=== PATIENT | male | born 1960 | race African-American/Black ===

== ENCOUNTER 2018-03-03 10:36 | Inpatient (IN) | payer OTHER ==
[2018-03-03 13:38] VITALS: BMI 29.0
--- NOTE | 2018-03-03 14:27 | HP ---
Admission [facility] Chief Complaint: requesting rehab fromal alcohol and cocaine after recent relapse Allergies/Adverse Reactions: Allergies Allergy/AdvReac Type Severity Reaction Status Date / Time lactose Allergy Verified 03/03/18 13:43 History of Present Illness: 57 yo m was sobeer manyyears when he realpased to alcohol and cocaine use, completed inpatiet detoax and now requesting rehab. no suicidal ideation, no h /o sieures, DTs. Exam Limitations: No Limitations - Ebola screening Have you traveled outside of the country in the last 21 days: No Have you had contact with anyone from an Ebola affected area: No Have you been sick,other than usual withdrawal symptoms: No Do you have a fever: No - Review of Systems Constitutional: No Symptoms Reported EENT: reports: No Symptoms Reported Respiratory: reports: No Symptoms reported Cardiac: reports: No Symptoms Reported GI: reports: No Symptoms Reported : reports: No Symptoms Reported Musculoskeletal: reports: No Symptoms Reported Integumentary: reports: No Symptoms Reported Neuro: reports: No Symptoms reported Endocrine: reports: No Symptoms Reported, Unexplained Weight Loss Psychiatric: reports: Judgement Intact, Mood/Affect Appropiate, Orientated x3, Anxious, Depressed Other Systems: Reviewed and Negative Patient History - Patient Medical History Hx Anemia: No Hx Asthma: No Hx Chronic Obstructive Pulmonary Disease (COPD): No Hx Cancer: Yes (s/p radiation implants for prostate ca) Hx Cardiac Disorders: No Hx Congestive Heart Failure: No Hx Hypertension: No Hx Hypercholesterolemia: No Hx Pacemaker: No HX Cerebrovascular Accident: No Hx Seizures: No Hx Dementia: No Hx Diabetes: No Hx Gastrointestinal Disorders: No Hx Liver Disease: No Hx Genitourinary Disorders: No Hx Sexually Transmitted Disorders: No Hx Renal Disease (ESRD): No Hx Thyroid Disease: No Hx Human Immunodeficiency Virus (HIV): No Hx Hepatitis C: No Hx Depression: Yes Hx Suicide Attempt: Yes (no si at present, last attempt 52) Hx Bipolar Disorder: Yes Hx Schizophrenia: Yes (schizoaffective do onmeds) - Patient Surgical History Past Surgical History: Yes Hx Genitourinary Surgery: Yes (prstate radaition implants) Hx Orthopedic Surgery: Yes (s/p rotator cuff surgery) Other Surgical History: bunions removal Anesthesia Reaction: No - PPD History Previous Implant?: Yes Documented Results: Negative w/o proof Implanted On Prior R Admission?: No PPD to be Administered?: Yes - Reproductive History Patient is a Female of Child Bearing Age (11 -55 yrs old): No Patient : No - Smoking Cessation Smoking history: Current every day smoker Have you smoked in the past 12 months: Yes Aproximately how many cigarettes per day: 10 Hx Chewing Tobacco Use: No Initiated information on smoking cessation: Yes 'Breaking Loose' booklet given: 03/03/18 - Substance & Tx. History Hx Alcohol Use: Yes Hx Substance Use: Yes Substance Use Type: Alcohol, Cocaine Hx Substance Use Treatment: Yes (detox [facility]) - Substances Abused Alcohol Route: Oral Frequency: Daily Amount used: 1 pint rum/ 2 6pks Age of first use: 17 Date of Last Use: 02/26/18 Cocaine Route: Inhalation Frequency: Daily Amount used: $10 Age of first use: 9 Date of Last Use: 02/26/18 Family Disease History - Family Disease History Family History: Denies Family Disease History: Heart Disease: Mother (kidney failure, depression), Brother (htnm, kidney failure), Sister (htn, kidney failure), Other: Mother, Brother, Sister Admission Physical Exam [facility] - Vital Signs Vital Signs: Vital Signs - 24 hr 03/03/18 13:36 Temperature 96.5 F L Pulse Rate 70 Respiratory 18 Rate Blood Pressure 151/91 - Physical General Appearance: Yes: Within Normal Limits, No Apparent Distress, Nourished, Appropriately Dressed HEENTM: Yes: Within Normal Limits, EOMI, Hearing grossly Normal, Normal ENT Inspection, Normocephalic, Normal Voice, SRINIVAS, Pharynx Normal Respiratory: Yes: Within Normal Limits, Chest Non-Tender, Lungs Clear, Normal Breath Sounds, No Respiratory Distress, No Accessory Muscle Use Neck: Yes: Within Normal Limits, No masses,lesions,Nodules, Supple, Trachea in good position Breast: Yes: Breast Exam Deferred Cardiology: Yes: Within Normal Limits, Regular Rhythm, Regular Rate, S1, S2 Abdominal: Yes: Within Normal Limits, Normal Bowel Sounds, Non Tender, Flat, Soft Genitourinary: Yes: Within Normal Limits Back: Yes: Within Normal Limits, Normal Inspection Musculoskeletal: Yes: Within Normal Limits, full range of Motion, Gait Steady, Pelvis Stable Extremities: Yes: Within Normal Limits, Normal Capillary Refill, Normal Inspection, Normal Range of Motion, Non-Tender Neurological: Yes: front end ui developer II-XII NML intact, Fully Oriented, Alert, Motor Strength 5/5, Normal Response, Depressed Affect Integumentary: Yes: Within Normal Limits, Normal Color, Dry, Warm Lymphatic: Yes: Within Normal Limits - Diagnostic (1) Alcohol dependence Current Visit: Yes Status: Acute (2) Nicotine dependence Current Visit: Yes Status: Acute (3) Cocaine dependence Current Visit: Yes Status: Acute (4) Schizoaffective disorder Current Visit: Yes Status: Acute (5) Prostate CA Current Visit: Yes Status: Acute [facility] Breath Alcohol Content Breath Alcohol Content: 0 Urine Drug Screen - Results Drug Screen Negative: No Urine Drug Screen Results: GLADYS-Cocaine, BZO-Benzodiazepines Inpatient Rehab Admission - Initial Determination Are CD services needed?: Yes Free of communicable disease: Yes Not in need of hospitalization: Yes - Rehab Admission Criteria Previous failed treatment: Yes Patient is meeting Inpatient Rehab admission criteria:: Yes
[2018-03-03] MEDS ORDERED: MENTHOL/PHENOL 1 EACH UD MM PRN (14:29)
[2018-03-03] MEDS ORDERED: hydrOXYzine PAMOATE 50 MG CAPSULE (FP) PO PRN (14:29)
[2018-03-03] MEDS ORDERED: IBUPROFEN 400 MG TABLET (FP) PO PRN (14:29)
[2018-03-03] MEDS ORDERED: LOPERAMIDE HCL 2 MG CAPSULE PO PRN (14:29)
[2018-03-03] MEDS ORDERED: MAGNESIUM HYDROX 2400MG/30ML ORAL SUSPENSION 30 ML CUP PO PRN (14:29)
[2018-03-03] MEDS ORDERED: NICOTINE POLACRILEX 2 MG GUM BC PRN (14:29)
[2018-03-03] MEDS ORDERED: ACETAMINOPHEN 325 MG TABLET (FP) PO PRN (14:29)
[2018-03-03] MEDS ORDERED: guaiFENesin/D-METHORPHAN HB 10 ML UNIT-DOSE CUPS PO PRN (14:29)
[2018-03-03] MEDS ORDERED: MAGNESIUM CITRATE 300 ML BOTTLE PO PRN (14:29)
[2018-03-03] MEDS ORDERED: P-EPHED 60MG/TRIPROLIDI 2.5MG TABLET PO PRN (14:29)
[2018-03-03] MEDS ORDERED: TUBERCULIN PPD 5 TU/0.1ML VIAL ID ONE (16:45)
[2018-03-03] MEDS: NICOTINE 14 MG/24 HOURS TOPICAL PATCH TD SCH (17:10)
--- NOTE | 2018-03-03 20:48 | PN ---
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 in am
[2018-03-03] MEDS: hydrOXYzine HCL 25 MG TABLET (FP) PO SCH (21:27)
[2018-03-03] MEDS: HALOPERIDOL 5 MG TABLET (FP) PO SCH (21:27)
[2018-03-03] MEDS: THIAMINE HCL 100 MG TABLET (FP) PO SCH (21:27)
[2018-03-03] MEDS ORDERED: MELATONIN 5 MG TABLETS PO PRN (22:00)
[2018-03-03] MEDS: FLUoxetine HCL 10 MG CAPSULE (FP) PO SCH (22:12)
[2018-03-04 04:59] LABS: URINE APPEARANCE CLEAR; URINE BILIRUBIN NEGATIVE (<2.0 mg/dL); URINE BLOOD NEGATIVE (NEGATIVE); URINE COLOR LTYELLOW; URINE GLUCOSE (UA) NEGATIVE (NEGATIVE); URINE KETONE NEGATIVE (NEGATIVE); URINE LEUK ESTERASE NEGATIVE (NEGATIVE); URINE NITRITE NEGATIVE (NEGATIVE); URINE PROTEIN NEGATIVE (NEGATIVE); URINE UROBILINOGEN NEGATIVE mg/dL (0.2-1.0)
[2018-03-04 10:04] LABS: HEMATOCRIT 43.5 % (35.4-49); HEMOGLOBIN 14.1 GM/dL (11.7-16.9); MCH 29.4 pg (25.7-33.7); MCHC 32.4 g/dl (32.0-35.9); MEAN CELL VOLUME 90.6 fl (80-96); MEAN PLT VOLUME 8.2 fl (7.5-11.1); PLATELET COUNT 287 K/MM3 (134-434); RDW 14.1 % (11.9-15.9); WHITE BLOOD COUNT 5.6 K/mm3 (4.0-10.0)
[2018-03-04 10:17] LABS: SICKLE CELL SCREEN NEGATIVE (NEGATIVE)
[2018-03-04] MEDS: NICOTINE 14 MG/24 HOURS TOPICAL PATCH TD SCH (10:33)
[2018-03-04] MEDS: PRENATAL VITAMINS W/ FOLIC ACID TABLET (FP) PO SCH (10:33)
[2018-03-04 10:48] LABS: CHLORIDE 112 mmol/L (98-107); POTASSIUM 4.8 mmol/L (3.5-5.1); SODIUM 139 mmol/L (136-145)
[2018-03-04 11:09] LABS: ALBUMIN 4.1 g/dl (3.4-5.0); ALK PHOS 84 U/L (45-117); ANION GAP 2 (8-16); BILIRUBIN,TOTAL 0.5 mg/dL (0.2-1.0); BLOOD UREA NITROGEN 17 mg/dL (7-18); CALCIUM 9.2 mg/dL (8.5-10.1); CO2 25 mmol/L (21-32); CREATININE 1.3 mg/dL (0.7-1.3); GLUCOSE,RANDOM 84 mg/dL (74-106); SGOT/AST 34 U/L (15-37); SGPT/ALT 49 U/L (12-78); TOT PROT 7.3 g/dl (6.4-8.2)
--- NOTE | 2018-03-04 11:15 | HP ---
Psychiatrist Admission - Data Date of interview: 03/04/18 Admission source: [facility] Identifying data: This is the first inpatient rehabilitation admission for this 57 year old AA male father of 4 grown children, unemployed supported on wellfare, residing in the [place] [facility]. Medical History: Surgical history of bunions removal, right rotator cuff surgery 10 years ago, s/p radiation implants for prostate cancer,smokes cigarettes 10 a day. Psychiatric History: Patient reports first psychiatric treatment at age of 15 due to depressed mood, then was on and off treatments, no history of psychiatric hospitalizations, states was diagnosed as schizoaffective, bipolar and depressive disorder, he reports had a severe depressed and psychotic episode 5 years ago when was diagnosed with prostatic cancer. Hisotry of 2 suicida attemps by pills overdose. Currently on Haldol 5 mg po hs, Prozac 10 mg po daily and Vistaril 25 mg po hs. Physical/Sexual Abuse/Trauma History: Patient denies history of sexual, physical and verbal abuse. Vital Signs: Vital Signs - 24 hr 03/03/18 03/03/18 03/04/18 13:36 18:28 00:52 Temperature 96.5 F L 99.0 F Pulse Rate 70 80 Respiratory 18 18 18 Rate Blood Pressure 151/91 126/81 03/04/18 03/04/18 03:30 07:06 Temperature 97.8 F Pulse Rate 61 Respiratory 18 18 Rate Blood Pressure 126/71 Allergies/Adverse Reactions: Allergies Allergy/AdvReac Type Severity Reaction Status Date / Time lactose Allergy Verified 03/03/18 13:43 Date of last physical exam: 03/03/18 Concur with the findings of this exam: Yes - Substance Abuse/Tx History Hx Alcohol Use: Yes (daily 2-6 pks beer, liqor 1 pin daily) Hx Substance Use: Yes Substance Use Type: Cocaine ($50 every other day) Hx Substance Use Treatment: Yes ([facility]) Mental Status Exam - Mental Status Exam Alert and Oriented to: Time, Place, Person Cognitive Function: Grossly Intact Patient Appearance: Well Groomed Mood: Apathetic, Sad Affect: Appropriate, Mood Congruent Patient Behavior: Appropriate, Cooperative Speech Pattern: Clear, Appropriate Voice Loudness: Normal Thought Process: Intact, Goal Oriented Thought Disorder: Not Present Hallucinations: Denies Suicidal Ideation: Denies Homicidal Ideation: Denies Insight/Judgement: Fair Sleep: Well Appetite: Good Muscle strength/Tone: Normal Gait/Station: Normal Psychiatric Findings - Problem List ([place] 1, 2,3) (1) Alcohol dependence Current Visit: Yes Status: Acute (2) Cocaine dependence Current Visit: Yes Status: Acute (3) Nicotine dependence Current Visit: Yes Status: Acute (4) Prostate CA Current Visit: Yes Status: Acute (5) Schizoaffective disorder Current Visit: Yes Status: Acute - Initial Treatment Plan Initial Treatment Plan: will continue his current medications, monitor progress as needed.
--- NOTE | 2018-03-04 13:07 | EKG ---
Test Reason : Blood Pressure : / mmHG Vent. Rate : 071 BPM Atrial Rate : 071 BPM P-R Int : 150 ms QRS Dur : 076 ms QT Int : 378 ms P-R-T Axes : 056 018 035 degrees QTc Int : 410 ms NORMAL SINUS RHYTHM NORMAL ECG NO PREVIOUS ECGS AVAILABLE Confirmed by CADENCE VUONG, CHARLES ([id number]) on 03/04/2018 1:06:36 PM Referred By: Confirmed By:CHARLES VILA MD
[2018-03-04] MEDS: hydrOXYzine HCL 25 MG TABLET (FP) PO SCH (21:32)
[2018-03-04] MEDS: FLUoxetine HCL 10 MG CAPSULE (FP) PO SCH (21:32)
[2018-03-04] MEDS: THIAMINE HCL 100 MG TABLET (FP) PO SCH (21:32)
[2018-03-04] MEDS: HALOPERIDOL 5 MG TABLET (FP) PO SCH (21:32)
[2018-03-05] MEDS: NICOTINE 14 MG/24 HOURS TOPICAL PATCH TD SCH (10:18)
[2018-03-05] MEDS: PRENATAL VITAMINS W/ FOLIC ACID TABLET (FP) PO SCH (10:18)
[2018-03-05] MEDS: HALOPERIDOL 5 MG TABLET (FP) PO SCH (21:47)
[2018-03-05] MEDS: FLUoxetine HCL 10 MG CAPSULE (FP) PO SCH (21:47)
[2018-03-05] MEDS: THIAMINE HCL 100 MG TABLET (FP) PO SCH (21:47)
[2018-03-05] MEDS: hydrOXYzine HCL 25 MG TABLET (FP) PO SCH (21:47)
[2018-03-06] MEDS: PRENATAL VITAMINS W/ FOLIC ACID TABLET (FP) PO SCH (10:42)
[2018-03-06] MEDS: NICOTINE 14 MG/24 HOURS TOPICAL PATCH TD SCH (10:42)
[2018-03-06] MEDS: hydrOXYzine HCL 25 MG TABLET (FP) PO SCH (21:31)
[2018-03-06] MEDS: THIAMINE HCL 100 MG TABLET (FP) PO SCH (21:31)
[2018-03-06] MEDS: FLUoxetine HCL 10 MG CAPSULE (FP) PO SCH (21:31)
[2018-03-06] MEDS: HALOPERIDOL 5 MG TABLET (FP) PO SCH (21:31)
[2018-03-07] MEDS: NICOTINE 14 MG/24 HOURS TOPICAL PATCH TD SCH (10:19)
[2018-03-07] MEDS: PRENATAL VITAMINS W/ FOLIC ACID TABLET (FP) PO SCH (10:19)
[2018-03-07] MEDS: MAG HYDROX/AL HYDROX/SIMETH 30 ML UNIT-DOSE CUP PO PRN ×2 (14:12→21:42)
[2018-03-07] MEDS: HALOPERIDOL 5 MG TABLET (FP) PO SCH (21:41)
[2018-03-07] MEDS: FLUoxetine HCL 10 MG CAPSULE (FP) PO SCH (21:41)
[2018-03-07] MEDS: hydrOXYzine HCL 25 MG TABLET (FP) PO SCH (21:41)
[2018-03-07] MEDS: THIAMINE HCL 100 MG TABLET (FP) PO SCH (21:41)
[2018-03-08] MEDS: PRENATAL VITAMINS W/ FOLIC ACID TABLET (FP) PO SCH (10:04)
[2018-03-08] MEDS: NICOTINE 14 MG/24 HOURS TOPICAL PATCH TD SCH (10:05)
[2018-03-08] MEDS: MAG HYDROX/AL HYDROX/SIMETH 30 ML UNIT-DOSE CUP PO PRN (20:04)
[2018-03-08] MEDS: hydrOXYzine HCL 25 MG TABLET (FP) PO SCH (21:44)
[2018-03-08] MEDS: THIAMINE HCL 100 MG TABLET (FP) PO SCH (21:44)
[2018-03-08] MEDS: FLUoxetine HCL 10 MG CAPSULE (FP) PO SCH (21:44)
[2018-03-08] MEDS: HALOPERIDOL 5 MG TABLET (FP) PO SCH (21:44)
[2018-03-09 07:10] VITALS: BP 114/76; PULSE 71; TEMP 96.7
--- NOTE | 2018-03-09 08:53 | PN ---
Psychiatric Progress Note Vital Signs: Vital Signs Period Temp Pulse Resp BP Sys/Benites Pulse Ox Last 24 Hr 96.7 F 71 16-18 114/76 Date of Session: 03/09/18 Chief Complaint:: Disharge visit HPI: Patient addressed alcohol and Cocaine dependence comorbid with schizoaffective disorder. ROS: Significant for Prostate Cancer. Current Medications: Active Medications Generic Name Dose Route Start Last Admin Trade Name Freq PRN Reason Stop Dose Admin Acetaminophen 650 mg 03/03/18 14:29 Tylenol - PO Q4H PRN FEVER Al Hydroxide/Mg Hydroxide 30 ml 03/03/18 14:29 03/08/18 20:04 Mylanta Oral Suspension - PO 30 ml Q6H PRN Administration DYSPEPSIA Eucalyptus/Menthol/Phenol/Sorbitol 1 each 03/03/18 14:29 Cepastat Lozenge - MM Q4H PRN SORE THROAT Fluoxetine HCl 10 mg 03/03/18 22:00 03/08/18 21:44 Prozac - PO 10 mg HS ADELSO Administration Guaifenesin 10 ml 03/03/18 14:29 Robitussin Dm - PO Q6H PRN COUGH Haloperidol 5 mg 03/03/18 22:00 03/08/18 21:44 Haldol - PO 5 mg HS ADELSO Administration Hydroxyzine HCl 25 mg 03/03/18 22:00 03/08/18 21:44 Atarax - PO 25 mg HS ADELSO Administration Ibuprofen 400 mg 03/03/18 14:29 Motrin - PO Q6H PRN Pain level 4-6 Loperamide HCl 4 mg 03/03/18 14:29 Imodium - PO Q6H PRN DIARRHEA Magnesium Citrate 300 ml 03/03/18 14:29 Citroma - PO Q48H PRN CONSTIPATION Magnesium Hydroxide 30 ml 03/03/18 14:29 Milk Of Magnesia - PO DAILY PRN CONSTIPATION Melatonin 5 mg 03/03/18 22:00 Melatonin PO HS PRN INSOMNIA Nicotine 14 mg 03/03/18 15:00 03/08/18 10:05 Nicoderm Patch - TD 14 mg DAILY ADELSO Administration Nicotine Polacrilex 2 mg 03/03/18 14:29 Nicorette Gum - BC Q2H PRN NICOTINE REPLACEMENT RX Multivit/Folic Acid/Iron 1 tab 03/04/18 10:00 03/08/18 10:04 Vitamins (Sjr) - PO 1 tab DAILY ADELSO Administration Pseudoephedrine/Triprolidine 1 combo 03/03/18 14:29 Actifed - PO TID PRN NASAL CONGESTION Thiamine HCl 100 mg 03/03/18 22:00 03/08/18 21:44 Vitamin B1 - PO 100 mg HS ADELSO Administration Current Side Effect: No Lab tests ordered: No Lab tests reviewed: Yes Provider note:: Patient completed this program today.he has met his treatment goals and will continue to address her issues on outpatient basis at [facility].He reports finding that current medications including prozac 10 mg po daily and Haldol 5 mg po daily.Scripts for 30 days provided. Therapy provided focusing on relapse prevention. Patient is stable for discharge today. Total face to face time:: 30 Mental Status Exam - Mental Status Exam Alert and Oriented to: Time, Place, Person Cognitive Function: Grossly Intact Patient Appearance: Well Groomed Mood: Hopeful, Euthymic Affect: Appropriate, Mood Congruent Patient Behavior: Cooperative Speech Pattern: Clear Voice Loudness: Normal Thought Process: Goal Oriented Thought Disorder: Being Controlled Hallucinations: Denies Suicidal Ideation: Denies Homicidal Ideation: Denies Insight/Judgement: Fair Sleep: Fair Appetite: Fair Muscle strength/Tone: Normal Gait/Station: Normal
[2018-03-09] MEDS: NICOTINE 14 MG/24 HOURS TOPICAL PATCH TD SCH (10:48)
[2018-03-09] MEDS: PRENATAL VITAMINS W/ FOLIC ACID TABLET (FP) PO SCH (10:48)
== END 2018-03-09 11:30 | disposition home or self-care (01) | DRG 772 ==
LOC: YASAS 10:36 → Y5N 14:42
PROVIDERS: ADMIT Psychiatry & Neurology Psychiatry; ATTEND Psychiatry & Neurology Psychiatry
PROC: HZ42ZZZ Group Counseling for Substance Abuse Treatment, Cognitive-Behavioral (ICD-10-PCS; principal; 2018-03-03)
DX: F10.20 Alcohol dependence, uncomplicated (principal); F14.20 Cocaine dependence, uncomplicated; F17.210 Nicotine dependence, cigarettes, uncomplicated; F25.9 Schizoaffective disorder, unspecified; F31.9 Bipolar disorder, unspecified; C61 Malignant neoplasm of prostate; Z91.5 Personal history of self-harm
CPT/HCPCS: 36415; 80053; 81003; 85027; 85660; 86593; 93005; 93010

== ENCOUNTER 2019-03-26 09:49 | Inpatient (IN) | payer OTHER ==
[2019-03-26 11:11] VITALS: BMI 29.2
--- NOTE | 2019-03-26 13:03 | HP ---
CIWA Score Nausea/Vomitin-No Nausea/No Vomiting Muscle Tremors: 4-Moderate,w/Arms Extend Anxiety: 3 Agitation: 3 Paroxysmal Sweats: 3 Orientation: 0-Oriented Tacttile Disturbances: 0-None Auditory Disturbances: 0-None Visual Disturbances: 0-None Headache: 0-None Present CIWA-Ar Total Score: 13 - Admission Criteria OASAS Guidelines: Admission for Medically Managed Detox: Requires at least one of the followin. CIWA greater than 12 2. Seizures within the past 24 hours 3. Delirium tremens within the past 24 hours 4. Hallucinations within the past 24 hours 5. Acute intervention needed for co occurring medical disorder 6. Acute intervention needed for co occurring psychiatric disorder 7. Severe withdrawal that cannot be handled at a lower level of care (continued vomiting, continued diarrhea, abnormal vital signs) requiring intravenous medication and/or fluids 8. Admission ROS [facility] - HPI Chief Complaint: I need help and trying to get it right. Allergies/Adverse Reactions: Allergies Allergy/AdvReac Type Severity Reaction Status Date / Time lactose Allergy Verified 03/26/19 10:58 History of Present Illness: Pt is a 58yrold male with a history of alcohol and cocaine dependence seeking detox for treatment. Exam Limitations: No Limitations - Ebola screening Have you traveled outside of the country in the last 21 days: No Have you had contact with anyone from an Ebola affected area: No Have you been sick,other than usual withdrawal symptoms: No Do you have a fever: No - Review of Systems Constitutional: Chills, Diaphoresis, Night Sweats, Changes in sleep EENT: reports: No Symptoms Reported Respiratory: reports: Cough Cardiac: reports: No Symptoms Reported GI: reports: Poor Fluid Intake : reports: No Symptoms Reported Musculoskeletal: reports: No Symptoms Reported Integumentary: reports: Flushing, Sweating Neuro: reports: Numbness, Tingling, Tremors Endocrine: reports: Excessive Sweating, Flushing, Intolerance to Cold, Intolerance to Heat Hematology: reports: No Symptoms Reported Psychiatric: reports: Judgement Intact, Mood/Affect Appropiate, Orientated x3, Agitated, Anxious Other Systems: Reviewed and Negative Patient History - Patient Medical History Hx Anemia: No Hx Asthma: No Hx Chronic Obstructive Pulmonary Disease (COPD): No Hx Cancer: Yes (s/p radiation implants for prostate ca) Hx Cardiac Disorders: No Hx Congestive Heart Failure: No Hx Hypertension: No Hx Hypercholesterolemia: No Hx Pacemaker: No HX Cerebrovascular Accident: No Hx Seizures: No Hx Dementia: No Hx Diabetes: No Hx Gastrointestinal Disorders: No Hx Liver Disease: No Hx Genitourinary Disorders: Yes (Radiation implants for prostate Ca) Hx Sexually Transmitted Disorders: No Hx Renal Disease (ESRD): No Hx Thyroid Disease: No Hx Human Immunodeficiency Virus (HIV): No (pt denies negative) Hx Hepatitis C: No (pt denies negative) Hx Depression: Yes Hx Suicide Attempt: Yes (tried to OD. Pt denies of any S/I ideation today.) Hx Bipolar Disorder: Yes Hx Schizophrenia: Yes (SCHIZOAFFECTIVE DISORDER) - Patient Surgical History Past Surgical History: Yes Hx Neurologic Surgery: No Hx Cataract Extraction: No Hx Cardiac Surgery: No Hx Lung Surgery: No Hx Breast Surgery: No Hx Breast Biopsy: No Hx Abdominal Surgery: No Hx Appendectomy: No Hx Cholecystectomy: No Hx Genitourinary Surgery: Yes (prostate radiation implants) Hx Orthopedic Surgery: Yes (s/p rotator cuff surgery) Other Surgical History: bunions removal Anesthesia Reaction: No - PPD History Previous Implant?: Yes Documented Results: Negative w/o proof PPD to be Administered?: Yes - Reproductive History Patient is a Female of Child Bearing Age (11 -55 yrs old): No - Smoking Cessation Smoking history: Current every day smoker Have you smoked in the past 12 months: Yes Aproximately how many cigarettes per day: 10 Hx Chewing Tobacco Use: No Initiated information on smoking cessation: Yes 'Breaking Loose' booklet given: 03/26/19 - Substance & Tx. History Hx Alcohol Use: Yes Hx Substance Use: Yes Substance Use Type: Alcohol, Cocaine Hx Substance Use Treatment: Yes (last detox 03/2018 [facility] [place]) - Substances abused Cocaine Substance route: Smoking Frequency: Daily Amount used: 150 dollars Age of first use: 29 Date of last use: 03/26/19 Alcohol Substance route: Oral Frequency: 3-6 times per week Amount used: gallon of barcardi/2-3 six pack beer. Age of first use: 17 Date of last use: 03/25/19 Family Disease History - Family Disease History Family Disease History: Heart Disease: Mother (kidney failure, depression), Brother (htnm, kidney failure), Sister (htn, kidney failure), Other: Mother, Brother, Sister Admission Physical Exam [facility] - Vital Signs Vital Signs: Vital Signs - 24 hr 03/26/19 03/26/19 10:57 11:24 Temperature 97.7 F 97.7 F Pulse Rate 77 77 Respiratory 16 16 Rate Blood Pressure 115/80 115/80 - Physical General Appearance: Yes: Appropriately Dressed, Moderate Distress, Tremorous, Irritable, Sweating, Anxious HEENTM: Yes: Normal Voice Respiratory: Yes: Lungs Clear, Normal Breath Sounds, No Respiratory Distress Neck: Yes: No masses,lesions,Nodules Breast: Yes: Within Normal Limits Cardiology: Yes: Regular Rhythm, Regular Rate, S1, S2 Abdominal: Yes: Normal Bowel Sounds Genitourinary: Yes: Within Normal Limits Back: Yes: Normal Inspection Musculoskeletal: Yes: full range of Motion Extremities: Yes: Normal Capillary Refill, Non-Tender, Tremors Neurological: Yes: Fully Oriented, Alert, Normal Response Integumentary: Yes: Normal Color, Diaphoresis Lymphatic: Yes: Within Normal Limits - Diagnostic (1) Cocaine dependence Current Visit: No Status: Acute (2) Nicotine dependence Current Visit: Yes Status: Chronic Qualifiers: Nicotine product type: cigarettes Substance use status: uncomplicated Qualified Code(s): F17.210 - Nicotine dependence, cigarettes, uncomplicated (3) Prostate CA Current Visit: No Status: Resolved (4) Schizoaffective disorder Current Visit: No Status: Acute (5) Alcohol dependence with uncomplicated withdrawal Current Visit: Yes Status: Chronic Cleared for Admission [facility] - Detox or Rehab [facility] Level of Care: Medically Managed Detox Regimen/Protocol: Librium Breathalyzer - Breathalyzer Breathalyzer: 0 Urine Drug Screen - Test Device Lot number: [id number] Expiration date: 10/30/20 - Control Is test valid?: Yes - Results Drug screen NEGATIVE: No Urine drug screen results: GLADYS-Cocaine Inpatient Rehab Admission - Rehab Decision to Admit Inpatient rehab admission?: No
[2019-03-26] MEDS ORDERED: hydrOXYzine PAMOATE 25 MG CAPSULE (FP) PO PRN (13:15)
[2019-03-26] MEDS ORDERED: MAGNESIUM CITRATE 300 ML BOTTLE PO PRN (13:15)
[2019-03-26] MEDS ORDERED: MENTHOL/PHENOL 1 EACH UD MM PRN (13:15)
[2019-03-26] MEDS ORDERED: ACETAMINOPHEN 325 MG TABLET (FP) PO PRN ×2 (13:15)
[2019-03-26] MEDS ORDERED: MELATONIN 5 MG TABLETS PO PRN (13:15)
[2019-03-26] MEDS ORDERED: MAGNESIUM HYDROX 2400MG/30ML ORAL SUSPENSION 30 ML CUP PO PRN (13:15)
[2019-03-26] MEDS ORDERED: IBUPROFEN 400 MG TABLET (FP) PO PRN (13:15)
[2019-03-26] MEDS ORDERED: ONDANSETRON *ODT* 4 MG TABLET SL PRN (13:15)
[2019-03-26] MEDS ORDERED: NICOTINE POLACRILEX 4 MG GUM BUC PRN (13:15)
[2019-03-26] MEDS ORDERED: BISMUTH SUBSALICYLATE 524 MG/30 ML UD PO PRN (13:15)
[2019-03-26] MEDS ORDERED: DICYCLOMINE HCL 10 MG CAPSULE PO PRN (13:15)
[2019-03-26] MEDS ORDERED: METHOCARBAMOL 500 MG TABLET PO PRN (13:15)
[2019-03-26] MEDS ORDERED: chlordiazePOXIDE HCL 25 MG CAPSULE PO PRN (13:15)
[2019-03-26] MEDS ORDERED: MAG HYDROX/AL HYDROX/SIMETH 30 ML UNIT-DOSE CUP PO PRN (13:15)
[2019-03-26] MEDS ORDERED: chlordiazePOXIDE HCL 25 MG CAPSULE PO ONE (14:00)
--- NOTE | 2019-03-26 14:02 | CONSULT ---
[facility] Psychiatric Consult - Data Date of interview: 03/26/19 Admission source: [facility] Identifying data: Readmission to [facility] for this 58 y/o AA male self- referred for detoxification (cocaine, alcohol). Examined at [address] [place] [address]. Patient is , a father of three, homeless (nursing home), unemployed and deprived of any source of income. Substance Abuse History: Confirmed by the patient in this interview. Details in current [facility] report as follows : Smoking history: Current every day smoker. Have you smoked in the past 12 months: Yes. Aproximately how many cigarettes per day: 10. Hx Chewing Tobacco Use: No. Initiated information on smoking cessation: Yes. 'Breaking Loose' booklet given: 03/26/19. - Substance & Tx. History. Hx Alcohol Use: Yes. Hx Substance Use: Yes. Substance Use Type: Alcohol, Cocaine. Hx Substance Use Treatment: Yes (last detox 03/2018 [facility]) . - Substances abused. Cocaine. Substance route: Smoking. Frequency: Daily. Amount used: 150 dollars. Age of first use: 29. Date of last use: . Alcohol. Substance route: Oral. Frequency: 3-6 times per week. Amount used: gallon of barcardi/2-3 six pack beer. Age of first use: 17. Date of last use: 03/25/19 Medical History: Remarkable for a history of radiation therapy (implants for cancer of prostate), excision of bunions and orthosurgery (right rotator cuff). Psychiatric History: First psychiatric contact occurred at age of 14 ( behavioral issues, mood dysregulation, sub-optimal academic performance). Patient endorses a history of three psychiatric hospitalizations ([facility], [facility], [facility]). Diagnosed with Schizoaffective Disorder. Mr Barrera presents with a history of two suicide attempts via overdose with medications (years ago). Maintained on prozac + haldol + cogentin (psychiatric OPD services are rendered at the [facility] mental health clinic in [facility]). Physical/Sexual Abuse/Trauma History: No reported history of abuse. Stressors : homelessness, unemployment, financial constraints, lack of a support network and serious medical illness (cancer of prostate). Additional Comment: Urine drug screen results: GLADYS-Cocaine. Noted. Mental Status Exam - Mental Status Exam Alert and Oriented to: Time, Place, Person Cognitive Function: Good Patient Appearance: Well Groomed (tattoos on both upper extremities) Mood: Hopeful Affect: Appropriate, Normal Range Patient Behavior: Fatigued, Appropriate, Cooperative Speech Pattern: Clear, Appropriate Voice Loudness: Normal Thought Process: Goal Oriented Thought Disorder: Not Present Hallucinations: Denies Suicidal Ideation: Denies Homicidal Ideation: Denies Insight/Judgement: Poor Sleep: Well Appetite: Good Muscle strength/Tone: Normal Gait/Station: Normal Psychiatric Findings - Problem List ([place] 1, 2,3) (1) Alcohol dependence with uncomplicated withdrawal Current Visit: Yes Status: Acute (2) Cocaine dependence Current Visit: Yes Status: Chronic (3) Nicotine dependence Current Visit: Yes Status: Chronic Qualifiers: Nicotine product type: cigarettes Substance use status: uncomplicated Qualified Code(s): F17.210 - Nicotine dependence, cigarettes, uncomplicated (4) Schizoaffective disorder Current Visit: Yes Status: Chronic Comment: Reported as current diagnosis. (5) History of schizophrenia Current Visit: Yes Status: Chronic - Initial Treatment Plan Initial Treatment Plan: Psychoeducation. Sleep hygiene. Support. Detoxification in progress. AA meetings. Resumed : haldol 5 mg po hs + cogentin 1 mg po hs + prozac 10 mg po daily. Side effects/benefits of these drugs are discussed with the patient. Mr Barrera is made aware of the risk for abnormal involuntary movements, dystonias, akathisia, dyskinesias, neuroleptic malignant syndrome, sexual dysfunction, suicidal ideation, anticholinergic effects(dry mouth, blurred vision, urinary hesitancy, constipation) and cardiovascular adverse events. Patient insists on getting back on this regimen (endorsed as effective and well tolerated). Consent (verbal) addressed to MD. Yang.
[2019-03-26 16:48] LABS: HEMATOCRIT 45.3 % (35.4-49); MCH 29.3 pg (25.7-33.7); MCHC 33.1 g/dl (32.0-35.9); MEAN CELL VOLUME 88.7 fl (80-96); MEAN PLT VOLUME 8.1 fl (7.5-11.1); PLATELET COUNT 251 K/MM3 (134-434); RDW 14.5 % (11.9-15.9); WHITE BLOOD COUNT 4.7 K/mm3 (4.0-10.0)
[2019-03-26 16:55] LABS: ALK PHOS 80 U/L (45-117); ANION GAP 4 MMOL/L (8-16); BILIRUBIN,TOTAL 1.2 mg/dL (0.2-1); BLOOD UREA NITROGEN 13 mg/dL (7-18); CALCIUM 9.4 mg/dL (8.5-10.1); CHLORIDE 109 mmol/L (98-107); CO2 28 mmol/L (21-32); CREATININE 1.3 mg/dL (0.55-1.3); GLUCOSE,RANDOM 106 mg/dL (74-106); POTASSIUM 5.2 mmol/L (3.5-5.1); SGOT/AST 14 U/L (15-37); SGPT/ALT 22 U/L (13-61); SODIUM 141 mmol/L (136-145); TOT PROT 7.4 g/dl (6.4-8.2)
[2019-03-26] MEDS: HALOPERIDOL 5 MG TABLET (FP) PO SCH (22:30)
[2019-03-26] MEDS: BENZTROPINE MESYLATE 1 MG TABLET (FP) PO SCH (22:30)
[2019-03-26] MEDS: chlordiazePOXIDE HCL 25 MG CAPSULE PO SCH (22:30)
[2019-03-26] MEDS: hydrOXYzine HCL 25 MG TABLET (FP) PO SCH (22:30)
[2019-03-26] MEDS: THIAMINE HCL 100 MG TABLET (FP) PO SCH (22:30)
[2019-03-27] MEDS: chlordiazePOXIDE HCL 25 MG CAPSULE PO SCH ×4 (05:40→22:33)
[2019-03-27] MEDS: PRENATAL VITAMINS W/ FOLIC ACID TABLET (FP) PO SCH (10:53)
[2019-03-27] MEDS: FLUoxetine HCL 10 MG CAPSULE (FP) PO SCH (10:54)
[2019-03-27] MEDS: NICOTINE 21 MG/24 HOURS TOPICAL PATCH TD SCH (10:54)
--- NOTE | 2019-03-27 13:00 | PN ---
S CIWA - CIWA Score Nausea/Vomitin-No Nausea/No Vomiting Muscle Tremors: 3 Anxiety: 3 Agitation: 4-Moderately Restless Paroxysmal Sweats: 3 Orientation: 0-Oriented Tacttile Disturbances: 0-None Auditory Disturbances: 0-None Visual Disturbances: 0-None Headache: 0-None Present CIWA-Ar Total Score: 13 BHS Progress Note (SOAP) Subjective: sweats shakes interrupted sleep anxiety Objective: 03/27/19 12:58 Vital Signs Temperature 99.0 F 03/27/19 09:43 Pulse Rate 88 03/27/19 09:43 Respiratory Rate 18 03/27/19 09:43 Blood Pressure 136/74 03/27/19 09:43 O2 Sat by Pulse Oximetry (%) Laboratory Tests 03/26/19 03/26/19 03/26/19 13:30 13:30 13:30 WBC 4.7 RBC 5.10 Hgb 15.0 Hct 45.3 MCV 88.7 MCH 29.3 MCHC 33.1 RDW 14.5 Plt Count 251 MPV 8.1 Sodium 141 Potassium 5.2 H Chloride 109 H Carbon Dioxide 28 Anion Gap 4 L BUN 13 Creatinine 1.3 Creat Clearance w eGFR 57.10 Random Glucose 106 Calcium 9.4 Total Bilirubin 1.2 H AST 14 L ALT 22 Alkaline Phosphatase 80 Total Protein 7.4 Albumin 4.0 RPR Titer Nonreactive HIV 1&2 Antibody Screen HIV P24 Antigen 03/26/19 14:15 WBC RBC Hgb Hct MCV MCH MCHC RDW Plt Count MPV Sodium Potassium Chloride Carbon Dioxide Anion Gap BUN Creatinine Creat Clearance w eGFR Random Glucose Calcium Total Bilirubin AST ALT Alkaline Phosphatase Total Protein Albumin RPR Titer HIV 1&2 Antibody Screen Negative HIV P24 Antigen Negative labs noted will repeat cmp [id number] ambulating no acute distress Assessment: 03/27/19 13:19 withdrawal sx Plan: continue detox increase fluids repeat cmp
[2019-03-27] MEDS: THIAMINE HCL 100 MG TABLET (FP) PO SCH (22:33)
[2019-03-27] MEDS: BENZTROPINE MESYLATE 1 MG TABLET (FP) PO SCH (22:33)
[2019-03-27] MEDS: hydrOXYzine HCL 25 MG TABLET (FP) PO SCH (22:33)
[2019-03-27] MEDS: HALOPERIDOL 5 MG TABLET (FP) PO SCH (22:33)
[2019-03-28] MEDS: chlordiazePOXIDE HCL 25 MG CAPSULE PO SCH ×3 (06:12→17:49)
[2019-03-28 10:54] LABS: ALBUMIN 3.1 g/dl (3.4-5.0); ALK PHOS 60 U/L (45-117); ANION GAP 4 MMOL/L (8-16); BILIRUBIN,TOTAL 0.3 mg/dL (0.2-1); BLOOD UREA NITROGEN 12 mg/dL (7-18); CALCIUM 8.7 mg/dL (8.5-10.1); CHLORIDE 112 mmol/L (98-107); CO2 24 mmol/L (21-32); CREATININE 1.1 mg/dL (0.55-1.3); GLUCOSE,RANDOM 87 mg/dL (74-106); SGOT/AST 17 U/L (15-37); SGPT/ALT 25 U/L (13-61); SODIUM 140 mmol/L (136-145); TOT PROT 5.8 g/dl (6.4-8.2)
[2019-03-28] MEDS: NICOTINE 21 MG/24 HOURS TOPICAL PATCH TD SCH (11:10)
[2019-03-28] MEDS: PRENATAL VITAMINS W/ FOLIC ACID TABLET (FP) PO SCH (11:10)
[2019-03-28] MEDS: FLUoxetine HCL 10 MG CAPSULE (FP) PO SCH (11:14)
--- NOTE | 2019-03-28 11:22 | PN ---
[facility] CIWA - CIWA Score Nausea/Vomitin-No Nausea/No Vomiting Muscle Tremors: 3 Anxiety: 3 Agitation: 1-Slight > Activity Paroxysmal Sweats: 2 Orientation: 0-Oriented Tacttile Disturbances: 0-None Auditory Disturbances: 0-None Visual Disturbances: 0-None Headache: 0-None Present CIWA-Ar Total Score: 9 BHS Progress Note (SOAP) Subjective: patient c/o sweating, shakes and anxiety Objective: 03/28/19 11:20 Laboratory Tests 03/26/19 03/26/19 03/26/19 13:30 13:30 13:30 WBC 4.7 RBC 5.10 Hgb 15.0 Hct 45.3 MCV 88.7 MCH 29.3 MCHC 33.1 RDW 14.5 Plt Count 251 MPV 8.1 Sodium 141 Potassium 5.2 H Chloride 109 H Carbon Dioxide 28 Anion Gap 4 L BUN 13 Creatinine 1.3 Creat Clearance w eGFR 57.10 Random Glucose 106 Calcium 9.4 Total Bilirubin 1.2 H AST 14 L ALT 22 Alkaline Phosphatase 80 Total Protein 7.4 Albumin 4.0 RPR Titer Nonreactive HIV 1&2 Antibody Screen HIV P24 Antigen 03/26/19 03/28/19 14:15 07:00 WBC RBC Hgb Hct MCV MCH MCHC RDW Plt Count MPV Sodium 140 Potassium 5.0 Chloride 112 H Carbon Dioxide 24 Anion Gap 4 L BUN 12 Creatinine 1.1 Creat Clearance w eGFR 69.24 Random Glucose 87 Calcium 8.7 Total Bilirubin 0.3 AST 17 ALT 25 Alkaline Phosphatase 60 Total Protein 5.8 L Albumin 3.1 L RPR Titer HIV 1&2 Antibody Screen Negative HIV P24 Antigen Negative Vital Signs Temperature 97.3 F L 03/28/19 09:35 Pulse Rate 58 L 03/28/19 09:35 Respiratory Rate 18 03/28/19 09:35 Blood Pressure 122/80 03/28/19 09:35 O2 Sat by Pulse Oximetry (%) pe alert and oriented x 3 skin warm, moisture on face ext +tremors, full rom amb ad matthew anxious Assessment: 03/28/19 11:21 withdrawal sx Plan: continue detox encourage oral fluids monitor clinically
[2019-03-28] MEDS: chlordiazePOXIDE HCL 10 MG CAPSULE PO SCH (22:25)
[2019-03-28] MEDS: THIAMINE HCL 100 MG TABLET (FP) PO SCH (22:25)
[2019-03-28] MEDS: BENZTROPINE MESYLATE 1 MG TABLET (FP) PO SCH (22:26)
[2019-03-28] MEDS: HALOPERIDOL 5 MG TABLET (FP) PO SCH (22:26)
[2019-03-28] MEDS: hydrOXYzine HCL 25 MG TABLET (FP) PO SCH (22:26)
[2019-03-28] MEDS ORDERED: chlordiazePOXIDE HCL 10 MG CAPSULE PO PRN (23:00)
[2019-03-29] MEDS: chlordiazePOXIDE HCL 10 MG CAPSULE PO SCH ×4 (05:29→22:34)
[2019-03-29] MEDS: NICOTINE 21 MG/24 HOURS TOPICAL PATCH TD SCH (10:19)
[2019-03-29] MEDS: PRENATAL VITAMINS W/ FOLIC ACID TABLET (FP) PO SCH (10:19)
[2019-03-29] MEDS: FLUoxetine HCL 10 MG CAPSULE (FP) PO SCH (10:19)
--- NOTE | 2019-03-29 16:35 | PN ---
S CIWA - CIWA Score Nausea/Vomitin-No Nausea/No Vomiting Muscle Tremors: None Anxiety: 1-Mildly Anxious Agitation: 2 Paroxysmal Sweats: No Perspiration Orientation: 2-Disoriented Date<2 days Tacttile Disturbances: 0-None Auditory Disturbances: 0-None Visual Disturbances: 0-None Headache: 0-None Present CIWA-Ar Total Score: 5 BHS Progress Note (SOAP) Subjective: Anxious (Mild). Patient denies any other Detox / Withdrawal Symptoms and reports that he feels well overall at this time. Objective: PATIENT A & O X 2 (UNCERTAIN ABOUT CURRENT DAY / DATE). PATIENT OBSERVED AMBULATING ON UNIT UNASSISTED. IN NO ACUTE DISTRESS. 03/29/19 16:34 Vital Signs Temperature 98.0 F 03/29/19 13:26 Pulse Rate 63 03/29/19 13:26 Respiratory Rate 18 03/29/19 13:26 Blood Pressure 147/75 03/29/19 13:26 O2 Sat by Pulse Oximetry (%) Laboratory Tests 03/26/19 03/26/19 03/26/19 13:30 13:30 13:30 WBC 4.7 RBC 5.10 Hgb 15.0 Hct 45.3 MCV 88.7 MCH 29.3 MCHC 33.1 RDW 14.5 Plt Count 251 MPV 8.1 Sodium 141 Potassium 5.2 H Chloride 109 H Carbon Dioxide 28 Anion Gap 4 L BUN 13 Creatinine 1.3 Creat Clearance w eGFR 57.10 Random Glucose 106 Calcium 9.4 Total Bilirubin 1.2 H AST 14 L ALT 22 Alkaline Phosphatase 80 Total Protein 7.4 Albumin 4.0 RPR Titer Nonreactive HIV 1&2 Antibody Screen HIV P24 Antigen 03/26/19 03/28/19 14:15 07:00 WBC RBC Hgb Hct MCV MCH MCHC RDW Plt Count MPV Sodium 140 Potassium 5.0 Chloride 112 H Carbon Dioxide 24 Anion Gap 4 L BUN 12 Creatinine 1.1 Creat Clearance w eGFR 69.24 Random Glucose 87 Calcium 8.7 Total Bilirubin 0.3 AST 17 ALT 25 Alkaline Phosphatase 60 Total Protein 5.8 L Albumin 3.1 L RPR Titer HIV 1&2 Antibody Screen Negative HIV P24 Antigen Negative LABS NOTED. Assessment: 03/29/19 16:35 WITHDRAWAL SYMPTOMS. Plan: CONTINUE DETOX. INCREASE DAILY PO FLUID / WATER INTAKE.
[2019-03-29] MEDS: BENZTROPINE MESYLATE 1 MG TABLET (FP) PO SCH (22:10)
[2019-03-29] MEDS: HALOPERIDOL 5 MG TABLET (FP) PO SCH (22:10)
[2019-03-29] MEDS: THIAMINE HCL 100 MG TABLET (FP) PO SCH (22:10)
[2019-03-29] MEDS: hydrOXYzine HCL 25 MG TABLET (FP) PO SCH (22:10)
[2019-03-30] MEDS: FLUoxetine HCL 10 MG CAPSULE (FP) PO SCH (10:14)
[2019-03-30] MEDS: PRENATAL VITAMINS W/ FOLIC ACID TABLET (FP) PO SCH (10:14)
[2019-03-30] MEDS: chlordiazePOXIDE HCL 10 MG CAPSULE PO SCH ×2 (10:14→22:17)
[2019-03-30] MEDS: NICOTINE 21 MG/24 HOURS TOPICAL PATCH TD SCH (10:14)
--- NOTE | 2019-03-30 15:03 | PN ---
S CIWA - CIWA Score Nausea/Vomitin-No Nausea/No Vomiting Muscle Tremors: None Anxiety: 0-No Anxiety, at Ease Agitation: 2 Paroxysmal Sweats: No Perspiration Orientation: 0-Oriented Tacttile Disturbances: 0-None Auditory Disturbances: 0-None Visual Disturbances: 0-None Headache: 0-None Present CIWA-Ar Total Score: 2 BHS Progress Note (SOAP) Subjective: Patient denies current Withdrawal / Detox symptoms and reports that he feels well overall. Objective: PATIENT A & O X 3, OBSERVED AMBULATING ON UNIT UNASSISTED. IN NO ACUTE DISTRESS. 03/30/19 15:02 Vital Signs Temperature 97.7 F 03/30/19 13:25 Pulse Rate 64 03/30/19 13:25 Respiratory Rate 18 03/30/19 13:25 Blood Pressure 124/78 03/30/19 13:25 O2 Sat by Pulse Oximetry (%) Laboratory Tests 03/26/19 03/26/19 03/26/19 13:30 13:30 13:30 WBC 4.7 RBC 5.10 Hgb 15.0 Hct 45.3 MCV 88.7 MCH 29.3 MCHC 33.1 RDW 14.5 Plt Count 251 MPV 8.1 Sodium 141 Potassium 5.2 H Chloride 109 H Carbon Dioxide 28 Anion Gap 4 L BUN 13 Creatinine 1.3 Creat Clearance w eGFR 57.10 Random Glucose 106 Calcium 9.4 Total Bilirubin 1.2 H AST 14 L ALT 22 Alkaline Phosphatase 80 Total Protein 7.4 Albumin 4.0 RPR Titer Nonreactive HIV 1&2 Antibody Screen HIV P24 Antigen 03/26/19 03/28/19 14:15 07:00 WBC RBC Hgb Hct MCV MCH MCHC RDW Plt Count MPV Sodium 140 Potassium 5.0 Chloride 112 H Carbon Dioxide 24 Anion Gap 4 L BUN 12 Creatinine 1.1 Creat Clearance w eGFR 69.24 Random Glucose 87 Calcium 8.7 Total Bilirubin 0.3 AST 17 ALT 25 Alkaline Phosphatase 60 Total Protein 5.8 L Albumin 3.1 L RPR Titer HIV 1&2 Antibody Screen Negative HIV P24 Antigen Negative LABS NOTED. Assessment: 03/30/19 15:03 WITHDRAWAL SYMPTOMS. Plan: CONTINUE DETOX. PATIENT SCHEDULED FOR D/C TOMORROW.
[2019-03-30] MEDS: hydrOXYzine HCL 25 MG TABLET (FP) PO SCH (22:17)
[2019-03-30] MEDS: HALOPERIDOL 5 MG TABLET (FP) PO SCH (22:17)
[2019-03-30] MEDS: THIAMINE HCL 100 MG TABLET (FP) PO SCH (22:17)
[2019-03-30] MEDS: BENZTROPINE MESYLATE 1 MG TABLET (FP) PO SCH (22:17)
[2019-03-31 07:04] VITALS: TEMP 97.7
[2019-03-31 09:07] VITALS: BP 126/78; PULSE 66
--- NOTE | 2019-03-31 14:21 | DS ---
[facility] Detox Discharge Summary Admission Date: 03/26/19 Discharge Date: 03/31/19 - History Present History: Alcohol Dependence, Cocaine Dependence Additional Comments: PATIENT GOING HOME FOR A FEW HOURS TO ATTEND TO PERSONAL MATTERS, THEN WILL RETURN LATER ON IN DAY TO APPLY FOR ADMISSION TO [facility] ([place], [place]). PATIENT WAS DISCHARGED FROM DETOX UNIT IN STABLE MEDICAL CONDITION. Pertinent Past History: Depression, Bipolar Disorder, Schzioaffective Disorder, History Of Schizophrenia , History Of Prostate Cancer Treated With Radiation Implants, Nicotine Dependence. - Physical Exam Results Vital Signs: Vital Signs Temperature 97.7 F 03/31/19 09:07 Pulse Rate 66 03/31/19 09:07 Respiratory Rate 18 03/31/19 09:07 Blood Pressure 126/78 03/31/19 09:07 O2 Sat by Pulse Oximetry (%) Pertinent Admission Physical Exam Findings: WITHDRAWAL SYMPTOMS. Laboratory Tests 03/26/19 03/26/19 03/26/19 13:30 13:30 13:30 WBC 4.7 RBC 5.10 Hgb 15.0 Hct 45.3 MCV 88.7 MCH 29.3 MCHC 33.1 RDW 14.5 Plt Count 251 MPV 8.1 Sodium 141 Potassium 5.2 H Chloride 109 H Carbon Dioxide 28 Anion Gap 4 L BUN 13 Creatinine 1.3 Creat Clearance w eGFR 57.10 Random Glucose 106 Calcium 9.4 Total Bilirubin 1.2 H AST 14 L ALT 22 Alkaline Phosphatase 80 Total Protein 7.4 Albumin 4.0 RPR Titer Nonreactive HIV 1&2 Antibody Screen HIV P24 Antigen 03/26/19 03/28/19 14:15 07:00 WBC RBC Hgb Hct MCV MCH MCHC RDW Plt Count MPV Sodium 140 Potassium 5.0 Chloride 112 H Carbon Dioxide 24 Anion Gap 4 L BUN 12 Creatinine 1.1 Creat Clearance w eGFR 69.24 Random Glucose 87 Calcium 8.7 Total Bilirubin 0.3 AST 17 ALT 25 Alkaline Phosphatase 60 Total Protein 5.8 L Albumin 3.1 L RPR Titer HIV 1&2 Antibody Screen Negative HIV P24 Antigen Negative LABS NOTED. - Treatment Hospital Course: Detox Protocol Followed, Detoxed Safely, Responded well, Discharged Condition Good, Rehab Referral Accepted Patient has Accepted a Rehab Referral to: [facility] ([place], [place]). - Medication Discharge Medications: Ambulatory Orders Hydroxyzine HCl 25 mg PO HS 03/03/18 Fluoxetine HCl [Prozac -] 10 mg PO HS #30 capsule 03/09/18 Haloperidol [Haldol -] 5 mg PO HS #30 tablet 03/09/18 - Diagnosis (1) Alcohol dependence with uncomplicated withdrawal Status: Acute (2) Schizoaffective disorder Status: Acute Qualifiers: Schizoaffective disorder type: unspecified Qualified Code(s): F25.9 - Schizoaffective disorder, unspecified (3) Cocaine dependence Status: Chronic Qualifiers: Substance use status: in withdrawal Qualified Code(s): F14.23 - Cocaine dependence with withdrawal (4) History of schizophrenia Status: Chronic (5) Nicotine dependence Status: Chronic Qualifiers: Nicotine product type: cigarettes Substance use status: uncomplicated Qualified Code(s): F17.210 - Nicotine dependence, cigarettes, uncomplicated (6) Schizoaffective disorder Status: Chronic Qualifiers: Schizoaffective disorder type: unspecified Qualified Code(s): F25.9 - Schizoaffective disorder, unspecified (7) Prostate CA Status: Resolved - AMA Did Patient Leave Against Medical Advice: No
== END 2019-03-31 08:54 | disposition home or self-care (01) | DRG 774 ==
LOC: YASAS 09:49 → Y6N 13:21
PROVIDERS: ADMIT Surgery; ATTEND Surgery
PROC: HZ2ZZZZ Detoxification Services for Substance Abuse Treatment (ICD-10-PCS; principal; 2019-03-26)
DX: F10.230 Alcohol dependence with withdrawal, uncomplicated (principal); F14.20 Cocaine dependence, uncomplicated; F17.210 Nicotine dependence, cigarettes, uncomplicated; F25.9 Schizoaffective disorder, unspecified; F31.9 Bipolar disorder, unspecified; Z85.46 Personal history of malignant neoplasm of prostate; Z86.59 Personal history of other mental and behavioral disorders; Z91.5 Personal history of self-harm
CPT/HCPCS: 36415; 80053; 85027; 86593; 87389

== ENCOUNTER 2019-04-27 10:00 | Inpatient (IN) | payer SELFPAY ==
[2019-04-27 10:48] VITALS: BMI 30.2
--- NOTE | 2019-04-27 12:17 | HP ---
CIWA Score Nausea/Vomitin-No Nausea/No Vomiting Muscle Tremors: 4-Moderate,w/Arms Extend Anxiety: 2 Agitation: 3 Paroxysmal Sweats: 3 Orientation: 0-Oriented Tacttile Disturbances: 0-None Auditory Disturbances: 0-None Visual Disturbances: 0-None Headache: 1-Very Mild CIWA-Ar Total Score: 13 - Admission Criteria OASAS Guidelines: Admission for Medically Managed Detox: Requires at least one of the followin. CIWA greater than 12 2. Seizures within the past 24 hours 3. Delirium tremens within the past 24 hours 4. Hallucinations within the past 24 hours 5. Acute intervention needed for co occurring medical disorder 6. Acute intervention needed for co occurring psychiatric disorder 7. Severe withdrawal that cannot be handled at a lower level of care (continued vomiting, continued diarrhea, abnormal vital signs) requiring intravenous medication and/or fluids 8. Admission ROS BHS - HPI Chief Complaint: I need help and need to get to rehab. Allergies/Adverse Reactions: Allergies Allergy/AdvReac Type Severity Reaction Status Date / Time haloperidol Allergy Verified 04/27/19 10:41 lactose Allergy Verified 04/27/19 10:37 History of Present Illness: pt is a 58yrold male with a history of alcohol and cocaine dependence seeking detox for treatment. Exam Limitations: No Limitations - Ebola screening Have you traveled outside of the country in the last 21 days: No (N) Have you had contact with anyone from an Ebola affected area: No Have you been sick,other than usual withdrawal symptoms: No Do you have a fever: No - Review of Systems Constitutional: Chills, Diaphoresis, Loss of Appetite, Night Sweats, Changes in sleep EENT: reports: No Symptoms Reported Respiratory: reports: No Symptoms reported Cardiac: reports: No Symptoms Reported GI: reports: Poor Appetite, Poor Fluid Intake : reports: No Symptoms Reported Musculoskeletal: reports: No Symptoms Reported Integumentary: reports: Sweating Neuro: reports: Tingling, Tremors Endocrine: reports: Excessive Sweating, Flushing, Intolerance to Cold, Intolerance to Heat Hematology: reports: No Symptoms Reported Psychiatric: reports: Judgement Intact, Mood/Affect Appropiate, Orientated x3, Agitated, Anxious Other Systems: Reviewed and Negative Patient History - Patient Medical History Hx Anemia: No Hx Asthma: No Hx Chronic Obstructive Pulmonary Disease (COPD): No Hx Cancer: Yes (s/p radiation implants for prostate ca) Hx Cardiac Disorders: No Hx Congestive Heart Failure: No Hx Hypertension: No Hx Hypercholesterolemia: No Hx Pacemaker: No HX Cerebrovascular Accident: No Hx Seizures: No Hx Dementia: No Hx Diabetes: No Hx Gastrointestinal Disorders: No Hx Liver Disease: No Hx Genitourinary Disorders: Yes (Radiation implants for prostate Ca) Hx Sexually Transmitted Disorders: No Hx Renal Disease (ESRD): No Hx Thyroid Disease: No Hx Human Immunodeficiency Virus (HIV): No (pt denies negative) Hx Hepatitis C: No (pt denies negative) Hx Depression: Yes Hx Suicide Attempt: Yes (tried to OD. Pt denies of any S/I ideation today.) Hx Bipolar Disorder: Yes Hx Schizophrenia: Yes (SCHIZOAFFECTIVE DISORDER) - Patient Surgical History Past Surgical History: Yes Hx Neurologic Surgery: No Hx Cataract Extraction: No Hx Cardiac Surgery: No Hx Lung Surgery: No Hx Breast Surgery: No Hx Breast Biopsy: No Hx Abdominal Surgery: No Hx Appendectomy: No Hx Cholecystectomy: No Hx Genitourinary Surgery: Yes (prostate radiation implants) Hx Orthopedic Surgery: Yes (s/p rotator cuff surgery) Other Surgical History: bunions removal Anesthesia Reaction: No - PPD History Previous Implant?: No Date: 03/28/19 PPD to be Administered?: No - Reproductive History Patient is a Female of Child Bearing Age (11 -55 yrs old): No - Smoking Cessation Smoking history: Current every day smoker Have you smoked in the past 12 months: Yes Aproximately how many cigarettes per day: 10 Hx Chewing Tobacco Use: No Initiated information on smoking cessation: Yes 'Breaking Loose' booklet given: 04/27/19 - Substance & Tx. History Hx Alcohol Use: Yes Hx Substance Use: Yes Substance Use Type: Alcohol, Cocaine Hx Substance Use Treatment: Yes (last detox [facility] 2019) - Substances abused Cocaine Substance route: Smoking Frequency: Daily Amount used: 150 dollars Age of first use: 29 Date of last use: 04/26/19 Alcohol Substance route: Oral Frequency: 3-6 times per week Amount used: gallon of barcardi/2-3 six pack beer. Age of first use: 17 Date of last use: 04/26/19 Family Disease History - Family Disease History Family Disease History: Heart Disease: Mother (kidney failure, depression), Brother (htnm, kidney failure), Sister (htn, kidney failure), Other: Mother, Brother, Sister Admission Physical Exam [facility] - Vital Signs Vital Signs: Vital Signs - 24 hr 04/27/19 04/27/19 10:42 11:18 Temperature 96.9 F L 96.9 F L Pulse Rate 56 L 56 L Respiratory 20 20 Rate Blood Pressure 117/72 117/72 - Physical General Appearance: Yes: Appropriately Dressed, Moderate Distress, Tremorous, Irritable, Sweating, Anxious HEENTM: Yes: Hearing grossly Normal, Normal Voice, Nasal Congestion Respiratory: Yes: Lungs Clear, Normal Breath Sounds, No Respiratory Distress Neck: Yes: No masses,lesions,Nodules Breast: Yes: Within Normal Limits Cardiology: Yes: Regular Rhythm, Regular Rate, S1, S2 Abdominal: Yes: Normal Bowel Sounds, Non Tender, Soft Genitourinary: Yes: Within Normal Limits Back: Yes: Normal Inspection Musculoskeletal: Yes: full range of Motion Extremities: Yes: Normal Capillary Refill, Normal Inspection, Non-Tender, Tremors Neurological: Yes: Fully Oriented, Alert, Normal Response Integumentary: Yes: Normal Color, Diaphoresis Lymphatic: Yes: Within Normal Limits - Diagnostic (1) Alcohol dependence with uncomplicated withdrawal Current Visit: Yes Status: Chronic (2) Schizoaffective disorder Current Visit: No Status: Acute Qualifiers: Schizoaffective disorder type: unspecified Qualified Code(s): F25.9 - Schizoaffective disorder, unspecified (3) Cocaine dependence Current Visit: Yes Status: Chronic Qualifiers: Substance use status: uncomplicated Qualified Code(s): F14.20 - Cocaine dependence, uncomplicated (4) Nicotine dependence Current Visit: Yes Status: Chronic Qualifiers: Nicotine product type: cigarettes Substance use status: uncomplicated Qualified Code(s): F17.210 - Nicotine dependence, cigarettes, uncomplicated (5) Schizoaffective disorder Current Visit: No Status: Chronic Qualifiers: Schizoaffective disorder type: unspecified Qualified Code(s): F25.9 - Schizoaffective disorder, unspecified Comment: Reported as current diagnosis. (6) Prostate CA Current Visit: No Status: Resolved Cleared for Admission [facility] - Detox or Rehab [facility] Level of Care: Medically Managed Detox Regimen/Protocol: Librium Breathalyzer - Breathalyzer Breathalyzer: 0 Urine Drug Screen - Test Device Lot number: [id number] Expiration date: 03/30/20 - Control Is test valid?: Yes - Results Drug screen NEGATIVE: No Urine drug screen results: [facility] Inpatient Rehab Admission - Rehab Decision to Admit Inpatient rehab admission?: No
[2019-04-27] MEDS ORDERED: MELATONIN 5 MG TABLETS PO PRN (12:41)
[2019-04-27] MEDS ORDERED: BISMUTH SUBSALICYLATE 262 MG/15 ML BTL PO PRN (12:41)
[2019-04-27] MEDS ORDERED: MAGNESIUM HYDROX 2400MG/30ML ORAL SUSPENSION 30 ML CUP PO PRN (12:41)
[2019-04-27] MEDS ORDERED: MAGNESIUM CITRATE 300 ML BOTTLE PO PRN (12:41)
[2019-04-27] MEDS ORDERED: ACETAMINOPHEN 325 MG TABLET (FP) PO PRN ×2 (12:41)
[2019-04-27] MEDS ORDERED: hydrOXYzine PAMOATE 25 MG CAPSULE (FP) PO PRN (12:41)
[2019-04-27] MEDS ORDERED: ONDANSETRON *ODT* 4 MG TABLET SL PRN (12:41)
[2019-04-27] MEDS ORDERED: chlordiazePOXIDE HCL 10 MG CAPSULE PO PRN (12:41)
[2019-04-27] MEDS ORDERED: MAG HYDROX/AL HYDROX/SIMETH 30 ML UNIT-DOSE CUP PO PRN (12:41)
[2019-04-27] MEDS ORDERED: METHOCARBAMOL 500 MG TABLET PO PRN (12:41)
[2019-04-27] MEDS ORDERED: NICOTINE POLACRILEX 4 MG GUM BUC PRN (12:41)
[2019-04-27] MEDS ORDERED: IBUPROFEN 400 MG TABLET (FP) PO PRN (12:41)
[2019-04-27] MEDS ORDERED: MENTHOL/PHENOL 1 EACH UD MM PRN (12:41)
[2019-04-27] MEDS ORDERED: chlordiazePOXIDE HCL 25 MG CAPSULE PO ONE (12:50)
[2019-04-27] MEDS: chlordiazePOXIDE HCL 25 MG CAPSULE PO SCH ×2 (13:00→22:08)
[2019-04-27 15:44] LABS: HEMATOCRIT 42.9 % (35.4-49); HEMOGLOBIN 13.9 GM/dL (11.7-16.9); MCH 28.8 pg (25.7-33.7); MCHC 32.4 g/dl (32.0-35.9); MEAN CELL VOLUME 88.9 fl (80-96); MEAN PLT VOLUME 8.3 fl (7.5-11.1); PLATELET COUNT 241 K/MM3 (134-434); RBC 4.82 M/mm3 (4.00-5.60); RDW 14.1 % (11.9-15.9); WHITE BLOOD COUNT 4.7 K/mm3 (4.0-10.0)
[2019-04-27 15:48] LABS: ALBUMIN 3.7 g/dl (3.4-5.0); BILIRUBIN,TOTAL 0.8 mg/dL (0.2-1); CALCIUM 9.1 mg/dL (8.5-10.1); CREATININE 1.1 mg/dL (0.55-1.3); TOT PROT 6.8 g/dl (6.4-8.2)
[2019-04-27] MEDS: THIAMINE HCL 100 MG TABLET (FP) PO SCH (22:08)
[2019-04-28] MEDS: chlordiazePOXIDE HCL 25 MG CAPSULE PO SCH (06:37)
[2019-04-28] MEDS: PRENATAL VITAMINS W/ FOLIC ACID TABLET (FP) PO SCH (10:33)
[2019-04-28] MEDS: NICOTINE 21 MG/24 HOURS TOPICAL PATCH TD SCH (10:34)
--- NOTE | 2019-04-28 11:29 | PN ---
[facility] CIWA - CIWA Score Nausea/Vomitin-Mild Nausea/No Vomiting Muscle Tremors: 3 Anxiety: 3 Agitation: 2 Paroxysmal Sweats: 1-Minimal Palms Moist Orientation: 1-Uncertain about Date Tacttile Disturbances: 0-None Auditory Disturbances: 0-None Visual Disturbances: 0-None Headache: 1-Very Mild CIWA-Ar Total Score: 12 S Progress Note (SOAP) Subjective: tremor anxious tired low energy Objective: 04/28/19 11:30 Vital Signs Temperature 97.7 F 04/28/19 09:16 Pulse Rate 82 04/28/19 09:16 Respiratory Rate 18 04/28/19 09:16 Blood Pressure 126/78 04/28/19 09:16 O2 Sat by Pulse Oximetry (%) Laboratory Last Values WBC 4.7 K/mm3 (4.0-10.0) 04/27/19 12:00 RBC 4.82 M/mm3 (4.00-5.60) 04/27/19 12:00 Hgb 13.9 GM/dL (11.7-16.9) 04/27/19 12:00 Hct 42.9 % (35.4-49) 04/27/19 12:00 MCV 88.9 fl (80-96) 04/27/19 12:00 MCH 28.8 pg (25.7-33.7) 04/27/19 12:00 MCHC 32.4 g/dl (32.0-35.9) 04/27/19 12:00 RDW 14.1 % (11.9-15.9) 04/27/19 12:00 Plt Count 241 K/MM3 (134-434) 04/27/19 12:00 MPV 8.3 fl (7.5-11.1) 04/27/19 12:00 Sodium 141 mmol/L (136-145) 04/27/19 12:00 Potassium 5.0 mmol/L (3.5-5.1) 04/27/19 12:00 Chloride 111 mmol/L (98-107) H 04/27/19 12:00 Carbon Dioxide 25 mmol/L (21-32) 04/27/19 12:00 Anion Gap 5 MMOL/L (8-16) L 04/27/19 12:00 BUN 11 mg/dL (7-18) 04/27/19 12:00 Creatinine 1.1 mg/dL (0.55-1.3) 04/27/19 12:00 Est GFR (CKD-EPI)AfAm 86.52 04/27/19 12:00 Est GFR (CKD-EPI)NonAf 74.65 04/27/19 12:00 Random Glucose 100 mg/dL (74-106) 04/27/19 12:00 Calcium 9.1 mg/dL (8.5-10.1) 04/27/19 12:00 Total Bilirubin 0.8 mg/dL (0.2-1) 04/27/19 12:00 AST 15 U/L (15-37) 04/27/19 12:00 ALT 25 U/L (13-61) 04/27/19 12:00 Alkaline Phosphatase 73 U/L (45-117) 04/27/19 12:00 Total Protein 6.8 g/dl (6.4-8.2) 04/27/19 12:00 Albumin 3.7 g/dl (3.4-5.0) 04/27/19 12:00 lab noted Assessment: 04/28/19 11:30 withdrawal sx Plan: continue detox
[2019-04-28] MEDS: chlordiazePOXIDE 5 MG CAPSULE PO SCH ×2 (14:07→22:30)
--- NOTE | 2019-04-28 14:44 | CONSULT ---
[facility] Psychiatric Consult - Data Date of interview: 04/28/19 Admission source: [facility] Identifying data: Patient is a 58 year old single male, father of four, unemployed, homeless, and is not currently receiving SSI. This is one of multiple admissions for patient. Patient admitted to for alcohol and cocaine dependence. Substance Abuse History: - Smoking Cessation. Smoking history: Current every day smoker. Have you smoked in the past 12 months: Yes. Aproximately how many cigarettes per day: 10. Hx Chewing Tobacco Use: No. Initiated information on smoking cessation: Yes. 'Breaking Loose' booklet given: 04/27/19. - Substance & Tx. History. Hx Alcohol Use: Yes. Hx Substance Use: Yes. Substance Use Type : Alcohol, Cocaine. Hx Substance Use Treatment: Yes (last detox [facility] 2018) . - Substances abused. Cocaine. Substance route: Smoking. Frequency: Daily. Amount used: 150 dollars. Age of first use: 29. Date of last use: . Alcohol. Substance route: Oral. Frequency: 3-6 times per week. Amount used: gallon of barcardi/2-3 six pack beer. Age of first use: 17. Date of last use: 04/26/19 Medical History: Remarkable for a history of radiation therapy (implants for cancer of prostate), excision of bunions and orthosurgery (right rotator cuff). Psychiatric History: Mr. Barrera's first psychiatric contact was at 12 years ago for mood dyregulation and hearing voices. Patient denies h/o psychiatric hospitalization although reports three CPEP admissions ([facility], [facility], [facility]). Mr. Barrera is currently provided with outpatient psychiatric care at [facility] and is prescribed prozac (unknown dose ) and an antipsychotic. He reports medication noncompliance for one week. Mr. Barrera reports h/o two suicide attempts via overdose many years. At present denies psychotic symptoms. No psychosis noted. Patient agreeable in resuming medications although consent would have to be faxed to patient's pharmacy. Physical/Sexual Abuse/Trauma History: denies Mental Status Exam - Mental Status Exam Alert and Oriented to: Time, Place, Person Cognitive Function: Good Patient Appearance: Well Groomed Mood: Euthymic Affect: Appropriate Patient Behavior: Cooperative Speech Pattern: Appropriate Voice Loudness: Normal Thought Process: Goal Oriented Thought Disorder: Not Present Hallucinations: Denies Suicidal Ideation: Denies Homicidal Ideation: Denies Insight/Judgement: Poor Sleep: Poorly Appetite: Fair Muscle strength/Tone: Normal Gait/Station: Normal Psychiatric Findings - Problem List ([place] 1, 2,3) (1) Alcohol dependence with uncomplicated withdrawal Current Visit: Yes Status: Acute (2) Cocaine dependence Current Visit: Yes Status: Chronic Qualifiers: Substance use status: uncomplicated Qualified Code(s): F14.20 - Cocaine dependence, uncomplicated (3) Schizoaffective disorder Current Visit: Yes Status: Chronic Qualifiers: Schizoaffective disorder type: unspecified Qualified Code(s): F25.9 - Schizoaffective disorder, unspecified - Initial Treatment Plan Initial Treatment Plan: Psychoeducation provided. Detoxification in progress. [facility] pharmacy contacted at and underwriter mortgage loan was informed that patient needs to sign a consent form in order for verification of medications to be discussed with provider. Consent faxed over to patient's pharmacy at [phone]. Follow up phone call made to pharmacist concerning verification of patient's medications. As per pharmacist patient received a 5 week supply on April 05, 2019 of the following medications: Prozac 10mg daily + Abilify 10mg HS + Cogentin 1mg HS + Vistaril 25mg HS. Patient in agreement to resuming psychotropic medications. Patient informed that vistaril 25mg will be ordered q6h which he agreed upon. Benefits and side effects discussed. Verbal consent given.
[2019-04-28] MEDS: THIAMINE HCL 100 MG TABLET (FP) PO SCH (22:32)
[2019-04-28] MEDS: FLUoxetine HCL 10 MG CAPSULE (FP) PO SCH (22:32)
[2019-04-28] MEDS: ARIPiprazole 10 MG TABLET PO SCH (22:32)
[2019-04-28] MEDS: BENZTROPINE MESYLATE 1 MG TABLET (FP) PO SCH (22:32)
[2019-04-29] MEDS: chlordiazePOXIDE 5 MG CAPSULE PO SCH (06:03)
[2019-04-29] MEDS: NICOTINE 21 MG/24 HOURS TOPICAL PATCH TD SCH (10:02)
[2019-04-29] MEDS: PRENATAL VITAMINS W/ FOLIC ACID TABLET (FP) PO SCH (10:02)
--- NOTE | 2019-04-29 12:03 | PN ---
[facility] CIWA - CIWA Score Nausea/Vomitin-Mild Nausea/No Vomiting Muscle Tremors: 3 Anxiety: 2 Agitation: 2 Paroxysmal Sweats: 1-Minimal Palms Moist Orientation: 0-Oriented Tacttile Disturbances: 0-None Auditory Disturbances: 0-None Visual Disturbances: 0-None Headache: 1-Very Mild CIWA-Ar Total Score: 10 S Progress Note (SOAP) Subjective: doing ok with librium detox protocol sleep better at night more energy Objective: 04/29/19 12:04 Vital Signs Temperature 97.9 F 04/29/19 09:21 Pulse Rate 59 L 04/29/19 09:21 Respiratory Rate 18 04/29/19 09:21 Blood Pressure 124/77 04/29/19 09:21 O2 Sat by Pulse Oximetry (%) Laboratory Last Values WBC 4.7 K/mm3 (4.0-10.0) 04/27/19 12:00 RBC 4.82 M/mm3 (4.00-5.60) 04/27/19 12:00 Hgb 13.9 GM/dL (11.7-16.9) 04/27/19 12:00 Hct 42.9 % (35.4-49) 04/27/19 12:00 MCV 88.9 fl (80-96) 04/27/19 12:00 MCH 28.8 pg (25.7-33.7) 04/27/19 12:00 MCHC 32.4 g/dl (32.0-35.9) 04/27/19 12:00 RDW 14.1 % (11.9-15.9) 04/27/19 12:00 Plt Count 241 K/MM3 (134-434) 04/27/19 12:00 MPV 8.3 fl (7.5-11.1) 04/27/19 12:00 Sodium 141 mmol/L (136-145) 04/27/19 12:00 Potassium 5.0 mmol/L (3.5-5.1) 04/27/19 12:00 Chloride 111 mmol/L (98-107) H 04/27/19 12:00 Carbon Dioxide 25 mmol/L (21-32) 04/27/19 12:00 Anion Gap 5 MMOL/L (8-16) L 04/27/19 12:00 BUN 11 mg/dL (7-18) 04/27/19 12:00 Creatinine 1.1 mg/dL (0.55-1.3) 04/27/19 12:00 Est GFR (CKD-EPI)AfAm 86.52 04/27/19 12:00 Est GFR (CKD-EPI)NonAf 74.65 04/27/19 12:00 Random Glucose 100 mg/dL (74-106) 04/27/19 12:00 Calcium 9.1 mg/dL (8.5-10.1) 04/27/19 12:00 Total Bilirubin 0.8 mg/dL (0.2-1) 04/27/19 12:00 AST 15 U/L (15-37) 04/27/19 12:00 ALT 25 U/L (13-61) 04/27/19 12:00 Alkaline Phosphatase 73 U/L (45-117) 04/27/19 12:00 Total Protein 6.8 g/dl (6.4-8.2) 04/27/19 12:00 Albumin 3.7 g/dl (3.4-5.0) 04/27/19 12:00 RPR Titer Nonreactive (NONREACTIVE) 04/27/19 12:00 lab noted Assessment: 04/29/19 12:04 alcohol withdrawal sx Plan: continue detox
[2019-04-29] MEDS: chlordiazePOXIDE HCL 10 MG CAPSULE PO SCH ×2 (13:46→22:14)
[2019-04-29] MEDS: FLUoxetine HCL 10 MG CAPSULE (FP) PO SCH (22:13)
[2019-04-29] MEDS: THIAMINE HCL 100 MG TABLET (FP) PO SCH (22:13)
[2019-04-29] MEDS: BENZTROPINE MESYLATE 1 MG TABLET (FP) PO SCH (22:14)
[2019-04-29] MEDS: ARIPiprazole 10 MG TABLET PO SCH (22:14)
[2019-04-30] MEDS: chlordiazePOXIDE HCL 10 MG CAPSULE PO SCH (05:56)
[2019-04-30 06:16] VITALS: BP 115/69; PULSE 52; TEMP 96.9
--- NOTE | 2019-04-30 19:07 | PN ---
[facility] CIWA - CIWA Score Nausea/Vomitin-No Nausea/No Vomiting Muscle Tremors: None Anxiety: 0-No Anxiety, at Ease Agitation: 1-Slight > Activity Paroxysmal Sweats: No Perspiration Orientation: 0-Oriented Tacttile Disturbances: 0-None Auditory Disturbances: 0-None Visual Disturbances: 0-None Headache: 0-None Present CIWA-Ar Total Score: 1 BHS Progress Note (SOAP) Subjective: Patient denies current Withdrawal / Detox symptoms and reports that he feels well overall at this time. Objective: PATIENT A & O X 3, OBSERVED AMBULATING ON UNIT UNASSISTED. IN NO ACUTE DISTRESS. 04/30/19 19:05 Vital Signs Temperature 96.9 F L 04/30/19 06:16 Pulse Rate 52 L 04/30/19 06:16 Respiratory Rate 18 04/30/19 06:16 Blood Pressure 115/69 04/30/19 06:16 O2 Sat by Pulse Oximetry (%) Laboratory Tests 04/27/19 04/27/19 04/27/19 12:00 12:00 12:00 WBC 4.7 RBC 4.82 Hgb 13.9 Hct 42.9 MCV 88.9 MCH 28.8 MCHC 32.4 RDW 14.1 Plt Count 241 MPV 8.3 Sodium 141 Potassium 5.0 Chloride 111 H Carbon Dioxide 25 Anion Gap 5 L BUN 11 Creatinine 1.1 Est GFR (CKD-EPI)AfAm 86.52 Est GFR (CKD-EPI)NonAf 74.65 Random Glucose 100 Calcium 9.1 Total Bilirubin 0.8 AST 15 ALT 25 Alkaline Phosphatase 73 Total Protein 6.8 Albumin 3.7 RPR Titer Nonreactive LABS NOTED. Assessment: 04/30/19 19:06 COMPLETION OF DETOX REGIMEN. Plan: SINCE PATIENT DENIES CURRENT WITHDRAWAL / DETOX SYMPTOMS AND REPORTS THAT HE FEELS WELL OVERALL, AT PATIENT'S REQUEST, HE WAS GRANTED AN EARLY DISCHARGE FROM DETOX UNIT. PATIENT IS GOING HOME A THIS TIME ATTEND TO PERSONAL MATTERS, THEN WILL RETURN TO APPLY FOR ADMISSION TO [facility] ([place], [place]) AT A LATER DATE.
--- NOTE | 2019-04-30 19:09 | DS ---
[facility] Detox Discharge Summary Admission Date: 04/27/19 Discharge Date: 04/30/19 - History Present History: Alcohol Dependence, Cocaine Dependence Additional Comments: PATIENT RETURNING HOME FOR TIME BEING TO ATTEND TO PERSONAL MATTERS, THEN WILL RETURN TO APPLY FOR ADMISSION TO [facility] ([place], [place]) AT A LATER DATE. PATIENT WAS DISCHARGED FROM DETOX UNIT IN STABLE MEDICAL CONDITION. Pertinent Past History: History of Prostate Cancer (Treated with Radiation Implants), History of Schizoaffective Disorder, Nicotine Dependence, History Of Depression, History Of Bipolar Disorder. - Physical Exam Results Vital Signs: Vital Signs Temperature 96.9 F L 04/30/19 06:16 Pulse Rate 52 L 04/30/19 06:16 Respiratory Rate 18 04/30/19 06:16 Blood Pressure 115/69 04/30/19 06:16 O2 Sat by Pulse Oximetry (%) Pertinent Admission Physical Exam Findings: WITHDRAWAL SYMPTOMS. Laboratory Tests 04/27/19 04/27/19 04/27/19 12:00 12:00 12:00 WBC 4.7 RBC 4.82 Hgb 13.9 Hct 42.9 MCV 88.9 MCH 28.8 MCHC 32.4 RDW 14.1 Plt Count 241 MPV 8.3 Sodium 141 Potassium 5.0 Chloride 111 H Carbon Dioxide 25 Anion Gap 5 L BUN 11 Creatinine 1.1 Est GFR (CKD-EPI)AfAm 86.52 Est GFR (CKD-EPI)NonAf 74.65 Random Glucose 100 Calcium 9.1 Total Bilirubin 0.8 AST 15 ALT 25 Alkaline Phosphatase 73 Total Protein 6.8 Albumin 3.7 RPR Titer Nonreactive LABS NOTED. - Treatment Hospital Course: Detox Protocol Followed, Detoxed Safely, Responded well, Discharged Condition Good Patient has Accepted a Rehab Referral to: PT. WILL RETURN TO APPLY FOR ADMISSINO AT [facility] AT A LATER DATE. - Medication Discharge Medications: Ambulatory Orders Hydroxyzine HCl 25 mg PO HS 03/03/18 Fluoxetine HCl [Prozac -] 10 mg PO HS #30 capsule 03/09/18 Aripiprazole [Abilify -] 10 mg PO HS 04/28/19 Benztropine Mesylate [Cogentin -] 1 mg PO HS 04/28/19 - Diagnosis (1) Alcohol dependence with uncomplicated withdrawal Status: Acute (2) Cocaine dependence Status: Chronic Qualifiers: Substance use status: uncomplicated Qualified Code(s): F14.20 - Cocaine dependence, uncomplicated (3) Nicotine dependence Status: Chronic Qualifiers: Nicotine product type: cigarettes Substance use status: uncomplicated Qualified Code(s): F17.210 - Nicotine dependence, cigarettes, uncomplicated (4) Schizoaffective disorder Status: Chronic Qualifiers: Schizoaffective disorder type: unspecified Qualified Code(s): F25.9 - Schizoaffective disorder, unspecified (5) Prostate CA Status: Resolved - AMA Did Patient Leave Against Medical Advice: No
[2019-05-01] MEDS ORDERED: chlordiazePOXIDE HCL 10 MG CAPSULE PO SCH ×3 (06:00)
== END 2019-04-30 09:10 | disposition home or self-care (01) | DRG 774 ==
LOC: YASAS 10:00 → Y3N 12:22
PROVIDERS: ADMIT Surgery; ATTEND Surgery
PROC: HZ2ZZZZ Detoxification Services for Substance Abuse Treatment (ICD-10-PCS; principal; 2019-04-27)
DX: F10.230 Alcohol dependence with withdrawal, uncomplicated (principal); F14.20 Cocaine dependence, uncomplicated; F17.210 Nicotine dependence, cigarettes, uncomplicated; F25.9 Schizoaffective disorder, unspecified; Z85.46 Personal history of malignant neoplasm of prostate; Z92.3 Personal history of irradiation; Z91.5 Personal history of self-harm
CPT/HCPCS: 36415; 80053; 85027; 86593